=== PATIENT | female | born 1965 ===

== ENCOUNTER 2021-11-02 08:45 | Inpatient (IN) | payer OTHER ==
[~2021-11-02] VITALS: Ht 152.4 cm; Wt 53.5 kg
[2021-11-02] MEDS ORDERED: LIPITOR20 MG PO (13:15)
[2021-11-02] MEDS ORDERED: MESALAMINE800 MG PO (13:15)
[2021-11-02] MEDS ORDERED: BIOTIN5 MG PO (13:16)
[2021-11-02] MEDS ORDERED: CALCIUM500 M2 PO (13:16)
[2021-11-02] MEDS ORDERED: D3 + K2 DOTS 11 EACH PO (13:16)
[2021-11-02] MEDS ORDERED: VITAMIN C500 M6 PO (13:17)
[2021-11-09] MEDS ORDERED: DICLOFENAC SOD100 GM (09:40)
[2021-11-09] MEDS ORDERED: PREMARIN30 GM (09:40)
[2021-11-09] MEDS ORDERED: IBANDRONATE SO150 MG (09:40)
[2021-11-14] MEDS ORDERED: INTESTINEX680 M1 PO (07:50)
[2021-11-14] MEDS ORDERED: ULTRACET PO (07:50)
== END 2021-11-14 08:51 | disposition home or self-care (01) | DRG 331 ==
LOC: SURH 08:45 → O/R 11-09 07:09 → SURH 11-09 08:45
PROVIDERS: ADMIT Surgery; ATTEND Surgery
PROC: 0DTG4ZZ Resection of Left Large Intestine, Percutaneous Endoscopic Approach (ICD-10-PCS; principal; 2021-11-09 13:30)
DX: K56.699 Other intestinal obstruction unspecified as to partial versus complete obstruction (principal); K52.89 Other specified noninfective gastroenteritis and colitis; Z20.822 Contact with and (suspected) exposure to COVID-19